=== PATIENT | female | born 1950 | race Caucasian/White ===

== ENCOUNTER 2021-03-06 13:45 | Observation (INO) | payer OTHER ==
[2021-03-06 14:08] VITALS: BMI 32.8
[2021-03-06 16:39] LABS: BASO % 1.5 % (0-2.0); EOS % 1.3 % (0-4.5); HEMATOCRIT 41.1 % (32.4-45.2); MCH 31.7 pg (25.7-33.7); MCHC 34.1 g/dl (32.0-36.0); MEAN PLT VOLUME 8.1 fl (7.5-11.1); MONO % 7.5 % (3.8-10.2); NEUT % 60.7 % (42.8-82.8); PLATELET COUNT 251 10^3/uL (134-434); RBC 4.42 M/mm3 (3.60-5.2); RDW 13.5 % (11.6-15.6)
[2021-03-06 16:56] LABS: CHLORIDE 105 mmol/L (98-107); SODIUM 139 mmol/L (136-145)
[2021-03-06 16:59] LABS: ALBUMIN 3.5 g/dl (3.4-5.0); ANION GAP 7 MMOL/L (8-16); BLOOD UREA NITROGEN 15.6 mg/dL (7-18); CO2 27 mmol/L (21-32)
[2021-03-06 17:01] LABS: GLUCOSE,RANDOM 76 mg/dL (74-106)
[2021-03-06 17:02] LABS: CREATININE 0.6 mg/dL (0.55-1.3); SGOT/AST 38 U/L (15-37); SGPT/ALT 33 U/L (13-61)
[2021-03-06 17:03] LABS: BILIRUBIN,TOTAL 0.4 mg/dL (0.2-1)
[2021-03-06 17:04] LABS: TOT PROT 7.1 g/dl (6.4-8.2)
[2021-03-06 17:05] LABS: ALK PHOS 101 U/L (45-117)
[2021-03-06 17:07] LABS: N-TERMINAL BNP 114.9 pg/ml (5-125)
[2021-03-06] MEDS ORDERED: MECLIZINE HCL 25 MG TABLET (FP) PO ONE (17:56)
[2021-03-06] MEDS ORDERED: MECLIZINE HCL 25 MG TABLET (FP) ONE (18:09)
[2021-03-06] MEDS ORDERED: FUROSEMIDE 40 MG/4 ML INJECTABLE VIAL IVPUSH ONE (21:58)
[2021-03-06] MEDS ORDERED: FUROSEMIDE 40 MG/4 ML INJECTABLE VIAL ONE (22:28)
[2021-03-07] MEDS: LIDOCAINE PATCH REMOVAL MC SCH ×2 (03:35→21:46)
[2021-03-07 06:38] LABS: EOS % 2.4 % (0-4.5); HEMATOCRIT 40.2 % (32.4-45.2); HEMOGLOBIN 13.7 GM/dL (10.7-15.3); LYMPH % 29.9 % (8-40); MCH 31.7 pg (25.7-33.7); MCHC 34.1 g/dl (32.0-36.0); MEAN CELL VOLUME 93.1 fl (80-96); MEAN PLT VOLUME 8.4 fl (7.5-11.1); MONO % 9.7 % (3.8-10.2); PLATELET COUNT 250 10^3/uL (134-434); RBC 4.32 M/mm3 (3.60-5.2); RDW 13.2 % (11.6-15.6)
[2021-03-07 07:01] LABS: CHLORIDE 104 mmol/L (98-107); SODIUM 141 mmol/L (136-145)
[2021-03-07 07:08] LABS: GLUCOSE,RANDOM 96 mg/dL (74-106)
[2021-03-07 07:10] LABS: CALCIUM 8.1 mg/dL (8.5-10.1)
[2021-03-07 07:11] LABS: ALBUMIN 3.3 g/dl (3.4-5.0); ANION GAP 8 MMOL/L (8-16); BLOOD UREA NITROGEN 20.5 mg/dL (7-18); CO2 29 mmol/L (21-32)
[2021-03-07 07:13] LABS: CHOLESTEROL 243 mg/dL (50-200)
[2021-03-07 07:14] LABS: BILIRUBIN,TOTAL 0.4 mg/dL (0.2-1); CREATININE 0.8 mg/dL (0.55-1.3); PHOSPHOROUS 4.6 mg/dL (2.5-4.9); SGOT/AST 20 U/L (15-37); SGPT/ALT 30 U/L (13-61)
[2021-03-07 07:15] LABS: ALK PHOS 92 U/L (45-117); HDL CHOLESTEROL 50 mg/dL (40-60); LDL CHOLESTEROL (ONLY SJRH) 140 mg/dL (5-100); TRIGLYCERIDES 225 mg/dL (0-150)
[2021-03-07 07:16] LABS: TOT PROT 6.6 g/dl (6.4-8.2)
[2021-03-07 09:19] LABS: URINE APPEARANCE CLEAR; URINE BILIRUBIN NEGATIVE (NEGATIVE); URINE COLOR YELLOW; URINE GLUCOSE (UA) NEGATIVE (NEGATIVE); URINE KETONE NEGATIVE (NEGATIVE); URINE PROTEIN NEGATIVE (NEGATIVE)
[2021-03-07 09:20] LABS: EPI CELLS 9.5 /uL (0-25.1); HYALINE CASTS 0.63 /uL (0-3.1); URINE BACTERIA 27.9 /uL (0-1359); URINE LEUK ESTERASE NEGATIVE (NEGATIVE); URINE NITRITE NEGATIVE (NEGATIVE); URINE RBC 2.4 /uL (0-23.9); URINE UROBILINOGEN 0.2 mg/dL (0.2-1.0); URINE WBC 8.5 /uL (0-25.8)
[2021-03-07] MEDS: ENOXAPARIN NA (PORCINE) 40 MG/0.4 ML DISP.SYRIN SQ SCH (10:14)
[2021-03-07] MEDS: LOSARTAN POTASSIUM 50 MG TABLET PO SCH (10:14)
[2021-03-07] MEDS: LIDOCAINE 5% TOPICAL PATCH TP PRN (10:15)
[2021-03-07] MEDS ORDERED: BISACODYL 5 MG TABLET.DR (FP) PO PRN (21:06)
[2021-03-08 07:03] LABS: BASO % 0.7 % (0-2.0); EOS % 1.9 % (0-4.5); HEMATOCRIT 41.8 % (32.4-45.2); HEMOGLOBIN 14.3 GM/dL (10.7-15.3); LYMPH % 25.2 % (8-40); MCHC 34.3 g/dl (32.0-36.0); MEAN CELL VOLUME 93.4 fl (80-96); MEAN PLT VOLUME 8.6 fl (7.5-11.1); MONO % 7.2 % (3.8-10.2); PLATELET COUNT 264 10^3/uL (134-434); RBC 4.48 M/mm3 (3.60-5.2); RDW 13.3 % (11.6-15.6); WHITE BLOOD COUNT 5.1 K/mm3 (4.0-10.0)
[2021-03-08 07:23] LABS: ALBUMIN 3.5 g/dl (3.4-5.0); CALCIUM 8.7 mg/dL (8.5-10.1); MAGNESIUM 2.1 mg/dL (1.8-2.4)
[2021-03-08 07:24] LABS: BLOOD UREA NITROGEN 21.3 mg/dL (7-18)
[2021-03-08 07:26] LABS: CREATININE 0.6 mg/dL (0.55-1.3); PHOSPHOROUS 4.1 mg/dL (2.5-4.9)
[2021-03-08 07:28] LABS: BILIRUBIN,TOTAL 0.4 mg/dL (0.2-1); TOT PROT 6.7 g/dl (6.4-8.2)
[2021-03-08] MEDS ORDERED: REGADENOSON 0.4 MG/5 ML PRE-FILLED SYRINGE IVPUSH ONE ×2 (10:15→11:00)
[2021-03-08] MEDS: LIDOCAINE 5% TOPICAL PATCH TP PRN (13:25)
[2021-03-08] MEDS: LOSARTAN POTASSIUM 50 MG TABLET PO SCH (13:25)
[2021-03-08] MEDS: ENOXAPARIN NA (PORCINE) 40 MG/0.4 ML DISP.SYRIN SQ SCH (13:26)
[2021-03-08] MEDS: LIDOCAINE PATCH REMOVAL MC SCH (21:40)
[2021-03-09] MEDS: LOSARTAN POTASSIUM 50 MG TABLET PO SCH (09:35)
[2021-03-09] MEDS: ENOXAPARIN NA (PORCINE) 40 MG/0.4 ML DISP.SYRIN SQ SCH (09:35)
[2021-03-09 13:23] VITALS: BP 140/69; PULSE 76; TEMP 98.3
== END 2021-03-09 18:04 | disposition home or self-care (01) ==
LOC: JER 13:45 → JERBED 18:00 → J4S 03-07 03:46
PROVIDERS: ADMIT Internal Medicine; ATTEND Internal Medicine
PROC: 3E023GC Introduction of Other Therapeutic Substance into Muscle, Percutaneous Approach (ICD-10-PCS; principal; 2021-03-06)
PROC: 3E033GC Introduction of Other Therapeutic Substance into Peripheral Vein, Percutaneous Approach (ICD-10-PCS; 2021-03-06)
DX: I10 Essential (primary) hypertension (principal); E78.5 Hyperlipidemia, unspecified; M51.26 Other intervertebral disc displacement, lumbar region; R00.2 Palpitations; R06.00 Dyspnea, unspecified; K57.90 Diverticulosis of intestine, part unspecified, without perforation or abscess without bleeding; E66.9 Obesity, unspecified; Z68.32 Body mass index [BMI] 32.0-32.9, adult; Z90.710 Acquired absence of both cervix and uterus; Z29.9 Encounter for prophylactic measures, unspecified
CPT/HCPCS: 36415; 70450-TC; 70551-TC; 71046-TC-FY; 78452-TC; 80053; 80061; 81003; 82550; 82553; 83036; 83735; 83880; 84100; 84439; 84443; 84484; 85025; 85379; 93005; 93010; 93017; 93306-TC; 93880-TC; 93970-TC; 96372; 96374; 96375; 97116-GP; 97161-GP; 99285-25; A9502; C9803; G0378; J2785; U0003; U0005

== ENCOUNTER 2023-08-14 08:23 | Emergency (ER) | payer OTHER ==
[2023-08-14 08:31] VITALS: TEMP 97.8; BMI 32.4
[2023-08-14] MEDS ORDERED: IBUPROFEN 400 MG TABLET (FP) PO ONE ×2 (08:52→16:27)
[2023-08-14] MEDS ORDERED: ACETAMINOPHEN 500 MG TABLET (FP) ONE ×2 (08:52→16:27)
[2023-08-14] MEDS: IBUPROFEN 400 MG TABLET (FP) PO ONE ×2 (08:56→16:33)
[2023-08-14] MEDS: ACETAMINOPHEN 500 MG TABLET (FP) PO ONE ×2 (08:57→16:34)
[2023-08-14 15:49] VITALS: BP 148/69; PULSE 83; RESP 18
== END 2023-08-14 17:21 | disposition home or self-care (01) ==
LOC: JER 08:23
DX: M79.661 Pain in right lower leg (principal); M25.571 Pain in right ankle and joints of right foot; S82.831A Other fracture of upper and lower end of right fibula, initial encounter for closed fracture; W10.9XXA Fall (on) (from) unspecified stairs and steps, initial encounter; X50.1XXA Overexertion from prolonged static or awkward postures, initial encounter
CPT/HCPCS: 73590-TC-RT-FY; 73610-TC-RT-FY; 99283-25